=== PATIENT | male | born 1970 | race Caucasian/White ===

== ENCOUNTER 2023-09-03 20:00 | Emergency (ER) | payer OTHER, BC ==
[~2023-09-03] VITALS: Ht 182.9 cm; Wt 94.5 kg
[2023-09-03] MEDS ORDERED: GABAPENTIN 400MG CAP PO ONE (21:40)
[2023-09-03] MEDS ORDERED: METHOCARBAMOL 1,000 MG/10 ML VIAL IV ONE (21:40)
[2023-09-03] MEDS ORDERED: methylPREDNISolone 125MG 2ML VIAL IV ONE (21:40)
[2023-09-03] MEDS ORDERED: GABAPENTIN 300 MG CAP PO ONE (21:45)
[2023-09-03] MEDS ORDERED: diazePAM 10MG/2ML SYRINGE IV ONE (23:10)
[2023-09-04] MEDS ORDERED: MORPHINE 4 MG/ML 1ML VIAL IV ONE (00:30)
[2023-09-04] MEDS ORDERED: ONDANSETRON 4MG 2ML VIAL IV ONE (00:30)
[2023-09-04] MEDS ORDERED: OXYC1TAB23 PO (01:39)
[2023-09-04] MEDS ORDERED: METH-1164 PO (01:39)
[2023-09-04] MEDS ORDERED: GABA-282 PO (01:39)
[2023-09-04] MEDS ORDERED: OXYCODONE/APAP 5MG/325MG(HOME DOSE PACK) PO ONE (01:40)
[2023-09-04 02:00] VITALS: BP 165/89; TEMP 98.1; O2SAT 97
== END 2023-09-04 02:05 | disposition home or self-care (01) ==
LOC: M ED 20:00
DX: M54.50 Low back pain, unspecified (principal); Z88.4 Allergy status to anesthetic agent; Z79.891 Long term (current) use of opiate analgesic; Z79.899 Other long term (current) drug therapy
CPT/HCPCS: 72110; 96374; 96375; 99284; J2405; J2800; J2930; J3360